=== PATIENT | male | born 1950 | race Caucasian/White ===

== ENCOUNTER 2018-07-23 21:34 | Inpatient (IN) | payer MEDICARE ==
[~2018-07-23] VITALS: Ht 177.8 cm; Wt 136.6 kg
[~2018-07-23 21:34] MED LIST: ASPI-515 PO; CHOL500015 PO; LACT1CAP35 PO; ORLI60CA2 PO; POTASSIUM CITRATE PO; RED600TA PO; STOOL SOFTENER PO; VITAMIN K2 PO
[2018-07-23 22:58] VITALS: BP 152/95
[2018-07-23] MEDS ORDERED: BIOF1TAB6 PO (23:12)
[2018-07-23] MEDS ORDERED: SODI325T PO (23:13)
[2018-07-23] MEDS ORDERED: HEPARIN 5,000 UNITS/ML, 1ML IV ONE (23:45)
[2018-07-23] MEDS ORDERED: HEPARIN 25,000 UNITS/500ML PMX 500 ML IV PRN (23:45)
[2018-07-23] MEDS ORDERED: HEPARIN 5,000 UNITS/ML, 1ML IV PRN (23:45)
[2018-07-24] MEDS ORDERED: ONDANSETRON 2MG/ML, 2ML IVPush PRN
[2018-07-24] MEDS ORDERED: ORLISTAT PO SCH
[2018-07-24] MEDS ORDERED: BISACODYL 10 MG SUPP PR PRN
[2018-07-24] MEDS ORDERED: POLYETHYLENE GLYCOL 17 GM PACKET PO PRN
[2018-07-24] MEDS ORDERED: ACETAMINOPHEN 325 MG TABLET PO PRN
[2018-07-24] MEDS ORDERED: NITROGLYCERIN 0.4 MG BOTTLE (25 TABS) SL PRN
[2018-07-24] MEDS ORDERED: morphine SULFATE 10 MG/ML, 1ML IVPush PRN
[2018-07-24] MEDS: SODIUM CHLORIDE FLUSH 10ML SYR IVF SCH ×3 (00:02→20:25)
[2018-07-24 00:23] LABS: TROPONIN I 0.962 ng/mL (0.000-0.045)
[2018-07-24 00:28] LABS: FREE T4 (FREE THYROXINE) 1.08 ng/dL (0.76-1.46)
[2018-07-24 01:30] VITALS: BP 128/84
[2018-07-24 04:37] LABS: MICROSCOPIC AUTO
[2018-07-24 04:47] LABS: CULTURE INDICATED? NO
[2018-07-24 05:59] VITALS: BP 129/83
[2018-07-24] MEDS: CARVEDILOL 6.25 MG TABLET PO SCH ×2 (06:00→18:20)
[2018-07-24] MEDS: ASPIRIN 81 MG TABLET EC PO SCH (06:00)
[2018-07-24 06:38] LABS: ALBUMIN 3.2 g/dL (3.4-5.0); ANION GAP 10 mmol/L (5-15); CALCIUM 8.9 mg/dL (8.5-10.1); CHLORIDE 110 mmol/L (98-107)
[2018-07-24 06:44] LABS: ALANINE AMINOTRANSFERASE 28 U/L (12-78); ALKALINE PHOSPHATASE 65 U/L (45-117); BILIRUBIN,TOTAL 1.7 mg/dL (0.2-1.0); CHOL/HDL RATIO 5.2; CHOLESTEROL, TOTAL 161 mg/dL (140-239); HDL CHOL % 19 % (26-37); HDL CHOLESTEROL (DIRECT) 31 mg/dL (40-60); LDL CHOLESTEROL,CALCULATED 103 mg/dL (54-169); LDL/HDL RATIO 3.3 (0.5-3.0); TOTAL PROTEIN 7.1 g/dL (6.4-8.2); TRIGLYCERIDES 136 mg/dL (50-200); TROPONIN I 0.635 ng/mL (0.000-0.045); VLDL CHOLESTEROL 27 mg/dL (0-25)
[2018-07-24 06:53] LABS: BASOPHILS # (AUTO) 0.07 x10^3/uL (0-0.1); BASOPHILS % (AUTO) 1 % (0-1); EOSINOPHILS # (AUTO) 0.23 x10^3/uL (0-0.4); EOSINOPHILS % (AUTO) 2 % (1-7); LYMPHOCYTES # (AUTO) 3.97 x10^3/uL (1-3.4); LYMPHOCYTES % (AUTO) 31 % (22-44); MD NO; MEAN CORPUSCULAR HGB CONC 32.6 g/dL (33.2-36.2); MEAN PLATELET VOLUME 10.5 fL (7.4-10.4); MONOCYTES # (AUTO) 1.33 x10^3/uL (0.2-0.8); MONOCYTES % (AUTO) 10 % (2-9); NEUTROPHILS # (AUTO) 7.29 x10^3/uL (1.8-6.8); NEUTROPHILS % (AUTO) 57 % (42-75); PLATELET COUNT 184 x10^3/uL (130-400); RED BLOOD COUNT 5.63 x10^6/uL (4.38-5.82); RED CELL DISTRIBUTION WIDTH 14.3 % (9.4-14.8)
[2018-07-24 07:01] VITALS: BP 111/76
[2018-07-24] MEDS ORDERED: [UNRECOGNIZED DRUG - OTHER] PO SCH (09:00)
[2018-07-24] MEDS ORDERED: RED YEAST RICE 2400 MG PO SCH (09:00)
[2018-07-24] MEDS: CHOLECALCIFEROL 5,000u TAB PO SCH (09:18)
[2018-07-24] MEDS: LACTOBACILLUS CHEW TABLET PO SCH (09:19)
[2018-07-24] MEDS: SENNA/DOCUSATE TABLET PO SCH (09:19)
[2018-07-24] MEDS: SODIUM BICARBONATE 650 MG TABLET PO SCH ×2 (09:30→20:25)
[2018-07-24] MEDS ORDERED: REGADENOSON 0.4 MG/5 ML SYRINGE ONE (10:33)
[2018-07-24 12:38] VITALS: BP 139/95
[2018-07-24] MEDS: DILTIAZEM 125 MG in SODIUM CHLORIDE 0.9% 100 ML IV PRN ×2 (13:06→20:39)
[2018-07-24 16:26] LABS: ANION GAP 8 mmol/L (5-15); CHLORIDE 107 mmol/L (98-107); CREATININE 1.99 mg/dL (0.7-1.3)
[2018-07-24] MEDS ORDERED: MAGNESIUM CITRATE 300ML ORAL SOL PO ONE (18:00)
[2018-07-24] MEDS ORDERED: POTASSIUM CHLORIDE 10 MEQ in SODIUM CHLORIDE 0.9% 1,000 ML IV SCH (18:00)
[2018-07-24 19:58] VITALS: BP 110/75
[2018-07-24] MEDS ORDERED: BENZONATATE 100 MG CAPSULE PO PRN (20:30)
[2018-07-24] MEDS ORDERED: MELATONIN 3 MG TABLET PO SCH (22:30)
[2018-07-25 00:24] VITALS: BP 90/60
[2018-07-25 02:05] VITALS: BP 117/66
[2018-07-25] MEDS ORDERED: FUROSEMIDE 20 MG/2 ML IV SCH (03:22)
[2018-07-25] MEDS: ASPIRIN 81 MG TABLET EC PO SCH (05:24)
[2018-07-25] MEDS: CARVEDILOL 6.25 MG TABLET PO SCH (05:24)
[2018-07-25 07:28] VITALS: BP 92/69
[2018-07-25] MEDS ORDERED: METOPROLOL TARTRATE 25 MG TABLET PO SCH (07:30)
[2018-07-25] MEDS: SODIUM BICARBONATE 650 MG TABLET PO SCH (08:08)
[2018-07-25] MEDS: CHOLECALCIFEROL 5,000u TAB PO SCH (08:08)
[2018-07-25] MEDS: SENNA/DOCUSATE TABLET PO SCH (08:08)
[2018-07-25] MEDS: LACTOBACILLUS CHEW TABLET PO SCH (08:10)
[2018-07-25 08:11] LABS: ALBUMIN 3.2 g/dL (3.4-5.0); ANION GAP 10 mmol/L (5-15); CALCIUM 8.9 mg/dL (8.5-10.1); CHLORIDE 109 mmol/L (98-107); CREATININE 2.18 mg/dL (0.7-1.3)
[2018-07-25] MEDS ORDERED: APIXABAN 5 MG TABLET PO SCH ×2 (09:00→21:00)
[2018-07-25] MEDS ORDERED: MAGNESIUM CITRATE 300ML ORAL SOL PO ONE (11:00)
[2018-07-25] MEDS ORDERED: PROPOFOL 10 MG/ML, 20ML ONE (11:03)
[2018-07-25 11:52] LABS: % IRON SATURATION 9 % (20-55); IRON LEVEL 37 mcg/dL (65-175); TOTAL IRON BINDING CAPACITY 425 mcg/dL (250-450)
[2018-07-25] MEDS ORDERED: SODIUM CHLORIDE 0.9% 1,000 ML IV SCH (12:30)
[2018-07-25 14:54] VITALS: BP 126/87
[2018-07-25] MEDS ORDERED: NITR0.4T SL (16:03)
[2018-07-25] MEDS ORDERED: METO25TA35 PO (16:03)
[2018-07-25] MEDS ORDERED: APIX5TAB PO (16:03)
== END 2018-07-25 17:08 | disposition home or self-care (01) | DRG 280 ==
LOC: 5SO 22:54 → DCLOUNGE 07-25 16:51
PROVIDERS: ADMIT Hospitalist; ATTEND Hospitalist
PROC: 5A2204Z Restoration of Cardiac Rhythm, Single (ICD-10-PCS; principal; 2018-07-25 11:00)
DX: I21.4 Non-ST elevation (NSTEMI) myocardial infarction (principal); I50.31 Acute diastolic (congestive) heart failure; J18.9 Pneumonia, unspecified organism; I13.0 Hypertensive heart and chronic kidney disease with heart failure and stage 1 through stage 4 chronic kidney disease, or unspecified chronic kidney disease; E87.2 Acidosis; E87.1 Hypo-osmolality and hyponatremia; Z68.41 Body mass index [BMI] 40.0-44.9, adult; E46 Unspecified protein-calorie malnutrition; D68.69 Other thrombophilia; N17.9 Acute kidney failure, unspecified; E66.01 Morbid (severe) obesity due to excess calories; H81.09 Meniere's disease, unspecified ear; D72.829 Elevated white blood cell count, unspecified; E87.5 Hyperkalemia; D75.1 Secondary polycythemia; I27.20 Pulmonary hypertension, unspecified; G47.30 Sleep apnea, unspecified; I48.91 Unspecified atrial fibrillation; K21.9 Gastro-esophageal reflux disease without esophagitis; K59.00 Constipation, unspecified; D63.8 Anemia in other chronic diseases classified elsewhere; M10.9 Gout, unspecified; N18.9 Chronic kidney disease, unspecified; N20.0 Calculus of kidney; G47.33 Obstructive sleep apnea (adult) (pediatric); I95.9 Hypotension, unspecified; Z79.82 Long term (current) use of aspirin; Z86.718 Personal history of other venous thrombosis and embolism; Z87.442 Personal history of urinary calculi; Z91.018 Allergy to other foods; Z91.048 Other nonmedicinal substance allergy status
CPT/HCPCS: 36415; 71045; 76770; 78452; 80048; 80053; 80061; 81001; 82040; 83540; 83550; 83735; 84100; 84439; 84443; 84484; 85025; 85520; 92960; 93005; 93017; 93306; 99285; G0378; J2704; J2785; J3480; A9502; C9898; J1940; J7030

== ENCOUNTER → 2018-10-17 | Outpatient (CLI) | payer MEDICARE ==
[~2018-10-17] MED LIST changes: +ACET325T14 PO; +APIX5TAB PO; +BIOF1TAB6 PO; +FLEC100T PO; +GABA100C PO; +METO25TA35 PO; +METO25TA91 PO; +NITR0.4T SL; +NITR0.4T28 SL; +OMEP-110 PO; +OMNIPAQUE 350 MG/ML, 150 ML BOTTLE ONE; +PEPTIVA PO; +SODI325T PO; +TEMA30CA6 PO; +[UNRECOGNIZED DRUG - OTHER] PO; +[UNRECOGNIZED DRUG - OTHER] PO
== END | disposition home or self-care (01) ==
LOC: CFH 11:30
PROVIDERS: ATTEND Internal Medicine Cardiovascular Disease
DX: Z13.6 Encounter for screening for cardiovascular disorders (principal); I48.91 Unspecified atrial fibrillation; J98.4 Other disorders of lung
CPT/HCPCS: 71046; 75572; 82565; Q9967

== ENCOUNTER 2018-10-20 06:20 | Observation (INO) | payer MEDICARE ==
[2018-10-17 13:12] LABS: BASOPHILS # (AUTO) 0.03 x10^3/uL (0-0.1); BASOPHILS % (AUTO) 0 % (0-1); EOSINOPHILS # (AUTO) 0.48 x10^3/uL (0-0.4); EOSINOPHILS % (AUTO) 5 % (1-7); LYMPHOCYTES % (AUTO) 31 % (22-44); MD NO; MEAN CORPUSCULAR HEMOGLOBIN 27.9 pg (27.5-34.5); MEAN CORPUSCULAR HGB CONC 32.2 g/dL (33.2-36.2); MEAN CORPUSCULAR VOLUME 86.4 fL (81-97); MEAN PLATELET VOLUME 9.8 fL (7.4-10.4); MONOCYTES # (AUTO) 0.89 x10^3/uL (0.2-0.8); MONOCYTES % (AUTO) 9 % (2-9); NEUTROPHILS # (AUTO) 5.52 x10^3/uL (1.8-6.8); NEUTROPHILS % (AUTO) 55 % (42-75); PLATELET COUNT 201 x10^3/uL (130-400); RED BLOOD COUNT 5.67 x10^6/uL (4.38-5.82); RED CELL DISTRIBUTION WIDTH 17.6 % (9.4-14.8)
[2018-10-17 13:16] VITALS: BP 145/91
[2018-10-17 13:22] LABS: ALANINE AMINOTRANSFERASE 37 U/L (12-78); ALBUMIN 3.3 g/dL (3.4-5.0); ANION GAP 8 mmol/L (5-15); CHLORIDE 111 mmol/L (98-107); CREATININE 1.46 mg/dL (0.7-1.3)
[2018-10-17 13:24] LABS: ALKALINE PHOSPHATASE 68 U/L (45-117); BILIRUBIN,TOTAL 1.2 mg/dL (0.2-1.0); TOTAL PROTEIN 6.8 g/dL (6.4-8.2)
[2018-10-17 13:34] LABS: INTERNATIONAL NORMALIZED RATIO 1.06 (0.93-1.1); PROTHROMBIN TIME 11.2 Seconds (9.6-11.5)
[~2018-10-20] VITALS: Ht 177.8 cm; Wt 133.7 kg
[~2018-10-20 06:20] MED LIST changes: -ACET325T14 PO; -OMNIPAQUE 350 MG/ML, 150 ML BOTTLE ONE; -PEPTIVA PO; -TEMA30CA6 PO; -[UNRECOGNIZED DRUG - OTHER] PO; -[UNRECOGNIZED DRUG - OTHER] PO
[2018-10-20] MEDS ORDERED: SODIUM CHLORIDE 0.9% 1,000 ML IV SCH ×2 (06:34→07:00)
[2018-10-20] MEDS ORDERED: PEPTIVA PO (07:02)
[2018-10-20] MEDS ORDERED: [UNRECOGNIZED DRUG - OTHER] PO (07:02)
[2018-10-20] MEDS ORDERED: TEMA30CA6 PO (07:02)
[2018-10-20] MEDS ORDERED: [UNRECOGNIZED DRUG - OTHER] PO (07:02)
[2018-10-20] MEDS ORDERED: MIDAZOLAM 1 MG/ML, 2ML ONE (07:41)
[2018-10-20] MEDS ORDERED: PROPOFOL 50 ML ONE (07:41)
[2018-10-20] MEDS ORDERED: FENTANYL PF 250 MCG/5ML ONE (07:41)
[2018-10-20] MEDS ORDERED: ROCURONIUM 10MG/ML,5ML ONE (08:12)
[2018-10-20] MEDS ORDERED: ONDANSETRON 2MG/ML, 2ML ONE (08:12)
[2018-10-20] MEDS ORDERED: DEXAMETHASONE 4 MG/ML, 1ML ONE (08:12)
[2018-10-20] MEDS ORDERED: SUCCINYLCHOLINE 20 MG/ML, 10ML ONE (08:12)
[2018-10-20] MEDS ORDERED: LIDOCAINE 2%, 20ML ONE (08:33)
[2018-10-20] MEDS ORDERED: PEPTIVA PO PRN (10:30)
[2018-10-20] MEDS ORDERED: TEMAZEPAM 30 MG CAPSULE PO PRN (10:30)
[2018-10-20] MEDS ORDERED: ORLISTAT PO SCH (10:30)
[2018-10-20] MEDS ORDERED: ACETAMINOPHEN 325 MG TABLET PO PRN (10:30)
[2018-10-20] MEDS ORDERED: MORPHINE SULFATE 4 MG/ML, 1ML IVPush PRN (11:00)
[2018-10-20] MEDS ORDERED: ONDANSETRON ODT 8 MG PO PRN (11:00)
[2018-10-20] MEDS ORDERED: PROMETHAZINE 25 MG SUPP PR PRN (11:00)
[2018-10-20] MEDS ORDERED: ONDANSETRON 2MG/ML, 2ML IV PRN (11:00)
[2018-10-20] MEDS ORDERED: MIDAZOLAM 1 MG/ML, 2ML IV PRN (11:00)
[2018-10-20] MEDS ORDERED: PROMETHAZINE 25 MG/ML, 1ML IV PRN (11:00)
[2018-10-20] MEDS ORDERED: EPHEDRINE 50 MG/ML, 1ML IVPush PRN (11:00)
[2018-10-20] MEDS ORDERED: DIPHENHYDRAMINE 50 MG/ML, 1ML IVPush PRN (11:00)
[2018-10-20] MEDS ORDERED: OXYcodone 5 MG/5 ML ORAL.SOL UDC PO PRN (11:00)
[2018-10-20] MEDS ORDERED: PROMETHAZINE 12.5 MG SUPP PR PRN (11:00)
[2018-10-20] MEDS ORDERED: FENTANYL PF 100 MCG/2ML IV PRN (11:00)
[2018-10-20] MEDS ORDERED: EPHEDRINE 50 MG/ML, 1ML IM PRN (11:00)
[2018-10-20] MEDS ORDERED: OXYcodone 5 MG/5 ML ORAL.SOL UDC ONE (11:06)
[2018-10-20] MEDS ORDERED: APIXABAN 5 MG TABLET ONE (11:06)
[2018-10-20] MEDS: APIXABAN 5 MG TABLET PO SCH (11:09)
[2018-10-20 12:38] VITALS: BP 120/86
[2018-10-20] MEDS ORDERED: CHOLECALCIFEROL MC SCH (15:00)
[2018-10-20] MEDS ORDERED: VITAMIN K MC SCH (15:00)
[2018-10-20] MEDS ORDERED: STOOL SOFTENER MC SCH ×2 (15:00→16:33)
[2018-10-20] MEDS: FLECAINIDE 100MG TABLET PO SCH (20:54)
[2018-10-20] MEDS: DOCUSATE 100 MG CAPSULE PO SCH (20:54)
[2018-10-20 20:55] VITALS: BP 128/73
[2018-10-20] MEDS: METOPROLOL SUCCINATE 25 MG TAB.ER.24H PO SCH (20:55)
[2018-10-20] MEDS ORDERED: OMEPRAZOLE 20 MG CAPSULE.DR PO SCH (21:00)
[2018-10-21 02:50] VITALS: BP 117/79
[2018-10-21 07:38] VITALS: BP 133/85
[2018-10-21] MEDS ORDERED: ACET325T14 PO (08:37)
[2018-10-21] MEDS ORDERED: CHOLECALCIFEROL 5,000u TAB PO SCH (09:00)
[2018-10-21] MEDS ORDERED: [UNRECOGNIZED DRUG - OTHER] PO SCH (09:00)
[2018-10-21] MEDS ORDERED: RED YEAST RICE 2400 MG PO SCH (09:00)
[2018-10-21] MEDS ORDERED: [UNRECOGNIZED DRUG - OTHER] PO SCH (09:00)
[2018-10-21] MEDS ORDERED: POTASSIUM CITRATE PO SCH (09:00)
[2018-10-21] MEDS ORDERED: LACTOBACILLUS CHEW TABLET PO SCH (09:00)
[2018-10-21] MEDS ORDERED: INTLU PO SCH (09:00)
[2018-10-21] MEDS ORDERED: [UNRECOGNIZED DRUG - OTHER] PO SCH (09:00)
[2018-10-21] MEDS: DOCUSATE 100 MG CAPSULE PO SCH (09:00)
[2018-10-21] MEDS: APIXABAN 5 MG TABLET PO SCH (09:15)
[2018-10-21] MEDS: FLECAINIDE 100MG TABLET PO SCH (09:15)
[2018-10-21] MEDS: METOPROLOL SUCCINATE 25 MG TAB.ER.24H PO SCH (09:16)
== END 2018-10-21 10:25 | disposition home or self-care (01) ==
LOC: CACL 06:20 → ORIP 10:26 → 5SO 12:37 → DCLOUNGE 10-21 10:13
PROVIDERS: ADMIT Internal Medicine Cardiovascular Disease; ATTEND Internal Medicine Cardiovascular Disease
DX: I48.3 Typical atrial flutter (principal); I48.91 Unspecified atrial fibrillation
CPT/HCPCS: 36415; 80053; 85025; 85610; 85730; 93312; 93321; 93325; 93613; 93621; 93653; C1730; C1732; C1766; C1769; C1894; C8929; G0378; J0330; J1100; J2250; J2405; J2704; J3010; J3490; Q9957

== ENCOUNTER → 2020-04-11 | Outpatient (CLI) | payer MEDICARE ==
[~2020-04-11] MED LIST changes: +ACET325T14 PO; -NITR0.4T SL; +NITR0.4T41 SL; +PEPTIVA PO; +TEMA30CA6 PO; +[UNRECOGNIZED DRUG - OTHER] PO; +[UNRECOGNIZED DRUG - OTHER] PO
[2020-04-11 09:20] LABS: FIO2 ROOM AIR %
== END | disposition home or self-care (01) ==
LOC: LAB 09:05
PROVIDERS: ATTEND Internal Medicine
DX: E87.2 Acidosis (principal)
CPT/HCPCS: 36600; 82803

== ENCOUNTER 2020-05-23 08:06 | Outpatient (CLI) | payer MEDICARE ==
[2020-05-23 08:36] LABS: ALANINE AMINOTRANSFERASE 32 U/L (12-78); ALBUMIN 3.3 g/dL (3.4-5.0); ANION GAP 4 mmol/L (5-15); CALCIUM 9.3 mg/dL (8.5-10.1); CHLORIDE 111 mmol/L (98-107); CHOLESTEROL, TOTAL 111 mg/dL (140-239); CREATININE 1.95 mg/dL (0.7-1.3)
[2020-05-23 08:39] LABS: ALKALINE PHOSPHATASE 88 U/L (45-117); BILIRUBIN,TOTAL 0.6 mg/dL (0.2-1.0); CHOL/HDL RATIO 3.2; HDL CHOL % 32 % (26-37); HDL CHOLESTEROL (DIRECT) 35 mg/dL (40-60); TOTAL PROTEIN 7.1 g/dL (6.4-8.2)
[2020-05-24 14:01] LABS: LDL CHOLESTEROL,CALCULATED 48 mg/dL (54-169); LDL/HDL RATIO 1.4 (0.5-3.0); TRIGLYCERIDES 140 mg/dL (50-200); VLDL CHOLESTEROL 28 mg/dL (0-25)
== END 2020-05-23 23:59 | disposition home or self-care (01) ==
LOC: LAB 08:06
PROVIDERS: ATTEND Internal Medicine Cardiovascular Disease
DX: I10 Essential (primary) hypertension (principal); I25.10 Atherosclerotic heart disease of native coronary artery without angina pectoris; I48.0 Paroxysmal atrial fibrillation; E78.2 Mixed hyperlipidemia; Z79.01 Long term (current) use of anticoagulants
CPT/HCPCS: 36415; 80053; 80061

== ENCOUNTER 2020-07-01 16:37 | Emergency (ER) | payer MEDICARE ==
[~2020-07-01] VITALS: Ht 177.8 cm; Wt 132.4 kg
[2020-07-01 16:47] VITALS: BP 134/76
== END 2020-07-01 17:37 | disposition home or self-care (01) ==
LOC: ED 17:00
DX: R04.0 Epistaxis (principal); Z86.718 Personal history of other venous thrombosis and embolism
CPT/HCPCS: 99282

== ENCOUNTER 2020-08-15 08:47 | Day surgery (SDC) | payer MEDICARE ==
[~2020-08-15] VITALS: Ht 177.8 cm; Wt 134.4 kg
[2020-08-15 09:22] VITALS: BP 119/72
[2020-08-15] MEDS ORDERED: PLEASE ENTER HEIGHT AND WEIGHT MC SCH (09:30)
[2020-08-15] MEDS ORDERED: DIPHENHYDRAMINE 50 MG/ML, 1ML IVPush ONE (09:30)
[2020-08-15] MEDS ORDERED: POTA5TAB2 PO (09:39)
[2020-08-15] MEDS ORDERED: LOSA1TAB25 PO (09:39)
[2020-08-15] MEDS ORDERED: ATOR40TA PO (09:39)
[2020-08-15] MEDS ORDERED: ISOS30TA8 PO (09:39)
[2020-08-15] MEDS ORDERED: METO25TA91 PO (09:39)
[2020-08-15] MEDS ORDERED: DIPHENHYDRAMINE 50 MG/ML, 1ML ONE (09:53)
[2020-08-15 09:55] LABS: BASOPHILS % (AUTO) 1 % (0-1); EOSINOPHILS % (AUTO) 5 % (1-7); LYMPHOCYTES % (AUTO) 46 % (22-44); MEAN CORPUSCULAR HEMOGLOBIN 30.1 pg (27.5-34.5); MEAN CORPUSCULAR HGB CONC 33.5 g/dL (33.2-36.2); MEAN PLATELET VOLUME 8.7 fL (7.4-10.4); MONOCYTES % (AUTO) 9 % (2-9); NEUTROPHILS % (AUTO) 39 % (42-75); PLATELET COUNT 248 x10^3/uL (130-400); RED BLOOD COUNT 4.45 x10^6/uL (4.38-5.82); RED CELL DISTRIBUTION WIDTH 14.2 % (9.4-14.8)
[2020-08-15 10:01] LABS: ANION GAP 5 mmol/L (5-15); CALCIUM 9.7 mg/dL (8.5-10.1); CHLORIDE 113 mmol/L (98-107)
[2020-08-15 10:04] LABS: CREATININE 1.88 mg/dL (0.7-1.3)
[2020-08-15 10:39] LABS: MD SCAN
[2020-08-15] MEDS ORDERED: BIVALIRUDIN 250 MG ONE ×3 (10:58→12:57)
[2020-08-15] MEDS ORDERED: FENTANYL PF 100 MCG/2ML ONE (10:58)
[2020-08-15] MEDS ORDERED: MIDAZOLAM 1 MG/ML, 5ML ONE (10:58)
[2020-08-15] MEDS: SODIUM CHLORIDE 0.9% 1,000 ML IV SCH ×5 (11:00→21:00)
[2020-08-15 11:10] LABS: INTERNATIONAL NORMALIZED RATIO 1.11 (0.93-1.1); PROTHROMBIN TIME 11.8 Seconds (9.6-11.5)
[2020-08-15] MEDS ORDERED: TICAGRELOR 90 MG TABLET ONE (12:56)
[2020-08-15] MEDS ORDERED: ASPIRIN 325 MG TABLET EC ONE (12:57)
[2020-08-15] MEDS ORDERED: ONDANSETRON 2MG/ML, 2ML IVPush PRN (13:00)
[2020-08-15] MEDS ORDERED: ACETAMINOPHEN 325 MG TABLET PO PRN (13:00)
[2020-08-15] MEDS ORDERED: ORLISTAT PO SCH (13:00)
[2020-08-15] MEDS ORDERED: NITROGLYCERIN SINGLE TAB 0.4 MG SL PRN (13:00)
[2020-08-15] MEDS ORDERED: ZOLPIDEM 5MG TABLET PO PRN (13:00)
[2020-08-15] MEDS ORDERED: BIVALIRUDIN 250 MG in SODIUM CHLORIDE 0.9% 50 ML IV SCH (13:00)
[2020-08-15] MEDS ORDERED: ATORVASTATIN 40 MG TABLET PO SCH (21:00)
[2020-08-15] MEDS: APIXABAN 5 MG TABLET PO SCH (21:20)
[2020-08-15] MEDS: METOPROLOL SUCCINATE 25 MG TAB.ER.24H PO SCH (21:20)
[2020-08-15] MEDS: TICAGRELOR 90 MG TABLET PO SCH (21:20)
[2020-08-15] MEDS: CHOLECALCIFEROL 5,000u TAB PO SCH (21:20)
[2020-08-15 22:14] VITALS: BP 113/75
[2020-08-16] MEDS: SODIUM CHLORIDE 0.9% 1,000 ML IV SCH ×3 (00:14→05:50)
[2020-08-16 01:35] VITALS: BP 106/69
[2020-08-16 04:27] LABS: ANION GAP 3 mmol/L (5-15); CALCIUM 9.6 mg/dL (8.5-10.1); CHLORIDE 115 mmol/L (98-107); CREATININE 1.85 mg/dL (0.7-1.3)
[2020-08-16 08:00] VITALS: BP 135/89
[2020-08-16] MEDS ORDERED: TICA90TA PO (08:29)
[2020-08-16] MEDS ORDERED: ATOR40TA PO (08:29)
[2020-08-16] MEDS ORDERED: TEMPLATE NON-FORMULARY MED. (Losartan/Hydrochlorothiazide** (Losartan-Hctz 100-12.5 Mg Tab PO SCH (09:00)
[2020-08-16] MEDS ORDERED: ISOSORBIDE MONONITRATE ER 30 MG TABLET PO SCH (09:00)
[2020-08-16] MEDS ORDERED: HYDROCHLOROTHIAZIDE 12.5 MG CAPSULE PO SCH (09:00)
[2020-08-16] MEDS ORDERED: ASPIRIN 81 MG TABLET EC PO SCH (09:00)
[2020-08-16] MEDS ORDERED: LOSARTAN 100 MG TAB PO SCH (09:00)
[2020-08-16] MEDS: APIXABAN 5 MG TABLET PO SCH (09:44)
[2020-08-16] MEDS: CHOLECALCIFEROL 5,000u TAB PO SCH (09:44)
[2020-08-16] MEDS: TICAGRELOR 90 MG TABLET PO SCH (09:48)
[2020-08-16] MEDS: METOPROLOL SUCCINATE 25 MG TAB.ER.24H PO SCH (09:49)
== END 2020-08-16 11:13 | disposition home or self-care (01) ==
LOC: CACL 08:47 → 5SO 16:25 → DCLOUNGE 08-16 11:04 → CACL 08-16 11:13
PROVIDERS: ATTEND Internal Medicine Cardiovascular Disease
DX: I25.110 Atherosclerotic heart disease of native coronary artery with unstable angina pectoris (principal); I25.83 Coronary atherosclerosis due to lipid rich plaque; I25.84 Coronary atherosclerosis due to calcified coronary lesion; I48.0 Paroxysmal atrial fibrillation; I25.5 Ischemic cardiomyopathy; I10 Essential (primary) hypertension; E78.2 Mixed hyperlipidemia; E66.3 Overweight; Z68.41 Body mass index [BMI] 40.0-44.9, adult; Z79.01 Long term (current) use of anticoagulants; Z79.899 Other long term (current) drug therapy
CPT/HCPCS: 36415; 80048; 85025; 85610; 85730; 93005; 93458; 99156; 99157; C1725; C1769; C1874; C1887; C1894; C9600; J0583; J1200; J2250; J3010; Q9967; G0378

== ENCOUNTER → 2020-11-22 | Outpatient (CLI) | payer MEDICARE ==
[~2020-11-22] MED LIST changes: -ASPI-515 PO; +ASPI-963 PO; +ATOR40TA PO; +ISOS30TA8 PO; +LOSA1TAB25 PO; +POTA5TAB2 PO; +TICA90TA PO
[2020-11-22 10:48] LABS: ALANINE AMINOTRANSFERASE 35 U/L (12-78); ALBUMIN 3.7 g/dL (3.4-5.0); ANION GAP 4 mmol/L (5-15); CALCIUM 9.7 mg/dL (8.5-10.1); CHLORIDE 112 mmol/L (98-107); CHOLESTEROL, TOTAL 115 mg/dL (140-239); CREATININE 1.92 mg/dL (0.7-1.3)
[2020-11-22 10:52] LABS: ALKALINE PHOSPHATASE 87 U/L (45-117); BILIRUBIN,TOTAL 0.7 mg/dL (0.2-1.0); CHOL/HDL RATIO 3.4; HDL CHOL % 30 % (26-37); LDL CHOLESTEROL,CALCULATED 56 mg/dL (54-169); LDL/HDL RATIO 1.6 (0.5-3.0); VLDL CHOLESTEROL 25 mg/dL (0-25)
[2020-11-22 10:53] LABS: HDL CHOLESTEROL (DIRECT) 34 mg/dL (40-60); TOTAL PROTEIN 7.7 g/dL (6.4-8.2); TRIGLYCERIDES 126 mg/dL (50-200)
== END | disposition home or self-care (01) ==
LOC: LAB 10:17
PROVIDERS: ATTEND Internal Medicine Cardiovascular Disease
DX: E78.2 Mixed hyperlipidemia (principal); I48.0 Paroxysmal atrial fibrillation
CPT/HCPCS: 36415; 80053; 80061